=== PATIENT | male | born 1990 | race Caucasian/White ===

== ENCOUNTER 2019-02-09 17:55 | Inpatient (IN) | payer MEDICAID, OTHER ==
[~2019-02-09] VITALS: Ht 299.7 cm; Wt 72.6 kg
[2019-02-09 20:17] LABS: BASOPHILS % 0.4 % (0.0-2.0); EOSINOPHILS % 0.3 % (0.0-5.0); HEMATOCRIT. 44.2 % (42.0-52.0); HEMOGLOBIN. 15.2 g/dL (14.0-18.0); LYMPHOCYTES % 20.8 % (20.0-50.0); MEAN CORPUSCULAR HEMOGLOBIN 29.4 pg (28.0-32.0); MEAN CORPUSCULAR VOLUME 85.6 fL (80.0-94.0); MEAN PLATELET VOLUME 11.4 fl (7.4-10.4); MONOCYTES % 7.6 % (2.0-8.0); NEUTROPHILS % 70.9 % (40.0-76.0); PLATELET 142 x1000/uL (130-400); RED BLOOD CELL COUNT 5.16 mill/uL (4.7-6.1); RED CELL DISTRIBUTION WIDTH 13.2 % (11.6-14.6)
[2019-02-09 20:22] LABS: CHLORIDE 105 mEq/L (98-107)
[2019-02-10 09:33] VITALS: BP 125/78
[2019-02-10] MEDS ORDERED: ONDANSETRON HCL 4MG/2ML INJ IV PRN (10:00)
[2019-02-10] MEDS ORDERED: ACETAMINOPHEN 325MG TABLET PO PRN (10:00)
[2019-02-10] MEDS: ASPIRIN 81MG TABLET PO SCH (10:03)
[2019-02-10 11:42] LABS: *AMPHETAMINES SCREEN URINE NEGATIVE (NEGATIVE); *BENZODIAZEPINES SCREEN URINE NEGATIVE (NEGATIVE)
[2019-02-10 11:43] LABS: *COCAINE SCREEN URINE NEGATIVE (NEGATIVE); CANNABINOID URINE SCREEN NEGATIVE (NEGATIVE); METHADONE URINE SCREEN NEGATIVE (NEGATIVE); OPIATES URINE SCREEN NEGATIVE (NEGATIVE); PHENCYCLIDINE URINE SCREEN NEGATIVE (NEGATIVE)
[2019-02-10 11:45] LABS: *BARBITURATES SCREEN URINE NEGATIVE (NEGATIVE)
[2019-02-10 12:00] VITALS: BP 114/72
[2019-02-10 12:27] LABS: LDL CHOLESTEROL 161 mg/dL (5-100)
[2019-02-10 12:30] VITALS: BP 114/72
[2019-02-10 12:30] LABS: HDL CHOLESTEROL 42 mg/dL (40-59)
[2019-02-10 16:00] VITALS: BP 109/72
[2019-02-10 20:00] VITALS: BP 118/72
[2019-02-11] VITALS: BP 122/74
[2019-02-11 04:00] VITALS: BP 114/73
[2019-02-11 08:00] VITALS: BP 118/74
[2019-02-11] MEDS: ASPIRIN 81MG TABLET PO SCH (08:25)
[2019-02-11 12:00] VITALS: BP 113/59
[2019-02-11 12:32] VITALS: BP 113/59
== END 2019-02-11 13:36 | disposition home or self-care (01) | DRG 203 ==
LOC: ER 17:55 → 7WST 23:48 → EDBEDREQTM 23:55 → EDBEDREQ 23:55 → ENRESERV 02-10 07:18 → CANRESERV 02-10 07:18 → ENRESERV 02-10 07:35
PROVIDERS: ADMIT Internal Medicine; ATTEND Internal Medicine
DX: M94.0 Chondrocostal junction syndrome [Tietze] (principal); E78.5 Hyperlipidemia, unspecified; R00.0 Tachycardia, unspecified
CPT/HCPCS: 36415; 71045; 80053; 80061; 80305; 83880; 84443; 84484; 85025; 85379; 93005; 93306; 99285; C1893